=== PATIENT | female | born 1970 | race Caucasian/White ===

== ENCOUNTER 2023-08-07 10:52 | Emergency (ER) | payer OTHER, SELFPAY ==
[2023-08-07 10:59] VITALS: BP 140/79
[2023-08-07 11:21] VITALS: BP 147/66
--- NOTE | 2023-08-07 11:21 | ED.GENMED ---
History of Present Illness
<Cherri Marino PA-C - Last Filed: 08/07/23 18:18>
General
Chief Complaint: Vaginal Bleeding
Source: patient
Exam Limitations: none
Time Seen by Provider: 08/07/23 11:15
Nursing documentation reviewed up to this point in time: agreed with
Travel History
Have you had any contact with someone who has COVID-19?: No
Do you have any symptoms of coronavirus? Fever > 100 degrees, chills, cough, shortness of breath, sore throat, loss of taste or smell, muscle aches, or headache?: No
History of Present Illness
History of Present Illness:
Patient is a 52 year old female w/ hx breast cancer presenting to the emergency department for evaluation of vaginal bleeding. Patient states that bleeding started initially 4 days ago, this past Saturday and has progressively gotten heavier since.
She endorses significant amounts of bright red blood with 'golf ball sized' clots. Patient states that she is changing pad every 1-2 hours. Patient reports associated fatigue and some very mild lower abdominal discomfort. Patient denies any
fever, chills, headache, dizziness, chest pain, or shortness of breath. 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
Patient states her last menstrual period was July 16. She does have a history of heavy bleeding status post childbirth. Patient does believe she had a fibroid that was being monitored over 20 years ago. Patient is not on any control at this
time. Patient denies any history of STDs/STIs.
Patient sees [facility]. She has a follow-up appt scheduled with them Saturday.
Review of Systems
<Cherri Marino PA-C - Last Filed: 08/07/23 18:18>
Review of Systems
Allergies reviewed?: Yes
All Other Systems: ROS reviewed and negative except as documented in HPI and ROS
Phy Exam
<Cherri Marino PA-C - Last Filed: 08/07/23 18:18>
Physical Exam
Physical Exam:
Vitals: Patient's vital signs are stable. Afebrile.
General: Patient is well appearing, no acute distress. Nontoxic appearing.
Skin: Warm and dry, no rashes or lesions
Head: Normocephalic, atraumatic
Eyes: Sclera nonicteric. EOMs intact. No nystagmus.
Throat: Protecting airway. Moist mucous membranes
Neck: Normal ROM, no cervical spine tenderness, no meningismus
Cardiac: Regular rate and rhythm, no murmurs.
Pulm: Normal respiratory effort, no wheezes, rales, rhonchi heard on exam.
Abdomen: Abdomen soft. Mild suprapubic tenderness without any rebound tenderness or guarding.
Pelvic: Minimal amount of blood in vaginal vault. Cervix closed. No clots visualized. No lacerations or other abnormalities noted.
Extremities: No evidence of cyanosis or edema. Good distal pulses.
Neuro: AAOx3. CN II-XII intact. No focal neurologic deficits.
Psychiatric: Normal affect.
Course
<Cherri Marino PA-C - Last Filed: 08/07/23 18:18>
Orders/Labs/Results
Orders:
Orders
08/07/23 11:29
Test Result ONCE
08/07/23 11:30
0.9% Sodium Chloride 1000 ml [Nss] 1,000 ml IV BOLUS
08/07/23 11:31
Type+Screen Urgent
Beta Hcg Serum Qualitative Screen [HCG, Serum Qualitative Screen] Urgent
Complete Blood Count/With Diff Urgent
Comprehensive Metabolic Panel Urgent
TSH Reflex To Free T4 Urgent
08/07/23 12:01
US Pelvis Only (non-obstetric) Urgent
Comment:
Reason For Exam: heavy vaginal bleeding and clots
Abnormal Lab Results
08/07/23
11:31
Hgb 11.9 L g/dL
(12.0-16.0)
Hct 36.9 L %
(37.0-47.0)
MCH 26.7 L pg
(27.0-31.0)
MCHC 32.2 L g/dL
(33.0-37.0)
MPV 10.6 H fL
(7.4-10.4)
Creatinine 0.5 L mg/dL
(0.6-1.0)
Glucose 102 H mg/dl
(70-99)
08/07/23 11:31
08/07/23 11:31
Vital Signs
Initial and Last Documented VS:
Initial Vital Signs
Temp Pulse Resp BP Pulse Ox
98.5 F 80 18 140/79 97
08/07/23 10:59 08/07/23 10:59 08/07/23 10:59 08/07/23 10:59 08/07/23 10:59
Last Documented Vital Signs
Temp Pulse Resp BP Pulse Ox
98.5 F 64 18 106/60 98
08/07/23 10:59 08/07/23 12:30 08/07/23 12:30 08/07/23 12:00 08/07/23 12:30
Noemilt;Dylan Diaz, DO - Last Filed: 08/07/23 12:40>
Orders/Labs/Results
Orders:
Orders
08/07/23 11:29
Test Result ONCE
08/07/23 11:30
0.9% Sodium Chloride 1000 ml [Nss] 1,000 ml IV BOLUS
08/07/23 11:31
Type+Screen Urgent
Beta Hcg Serum Qualitative Screen [HCG, Serum Qualitative Screen] Urgent
Complete Blood Count/With Diff Urgent
Comprehensive Metabolic Panel Urgent
TSH Reflex To Free T4 Urgent
08/07/23 12:01
US Pelvis Only (non-obstetric) Urgent
Comment:
Reason For Exam: heavy vaginal bleeding and clots
Abnormal Lab Results
08/07/23
11:31
Hgb 11.9 L g/dL
(12.0-16.0)
Hct 36.9 L %
(37.0-47.0)
MCH 26.7 L pg
(27.0-31.0)
MCHC 32.2 L g/dL
(33.0-37.0)
MPV 10.6 H fL
(7.4-10.4)
Creatinine 0.5 L mg/dL
(0.6-1.0)
Glucose 102 H mg/dl
(70-99)
08/07/23 11:31
08/07/23 11:31
Vital Signs
Initial and Last Documented VS:
Initial Vital Signs
Temp Pulse Resp BP Pulse Ox
98.5 F 80 18 140/79 97
08/07/23 10:59 08/07/23 10:59 08/07/23 10:59 08/07/23 10:59 08/07/23 10:59
Last Documented Vital Signs
Temp Pulse Resp BP Pulse Ox
98.5 F 64 18 106/60 98
08/07/23 10:59 08/07/23 12:30 08/07/23 12:30 08/07/23 12:00 08/07/23 12:30
<Cherri Marino PA-C - Last Filed: 08/07/23 18:18>
MDM/Problems Addressed
Differential Diagnosis Includes:
Not limited to: fibroids, ovarian cyst, hormonal imbalance secondary to perimenopause, ectopic , malignancy
MDM/Problems Addressed:
52 year old female presenting with heavy vaginal bleeding for the past 4 days. Some fatigue but she does deny any dizziness, shortness of breath, lightheadedness. Patient with history of heavy menstrual bleeding since childbirth and questionable
uterine fibroids. Patient does have close [employer] DES[employer]ER [id number] scheduled for next Saturday to rule out emergent bleeding. Patient has stable vital signs. Normotensive, regular heart rate. Exam as above. Patient is very well-appearing.
She has very minimal suprapubic tenderness, although abdomen is soft throughout. Pelvic exam shows very minimal bright red blood in vault with a closed cervix. No other abnormalities noted. Will check basic labs, , ultrasound. Will
monitor closely reassess.
Labs noted. Hemoglobin essentially normal at 11.9.�No prior value to compare. Otherwise no clinically significant abnormalities. test is negative. Will check ultrasound. Patient feeling better after IV fluids. Anticipate discharge
home with [employer] DES[employer]ER follow-up.
Pelvic ultrasound shows a mildly enlarged uterus without any discrete lesions identified. Results were discussed with patient. She has remained very stable with normal vital signs. She will be discharged with [employer]ER follow-up early next week.
She may require additional imaging and biopsies. Given stable vital signs and only bleeding for 4 days with history of breast cancer�will not start patient on progesterone. Return precautions discussed with patient at length. She is comfortable
with plan.
Chronic conditions affecting care:
History of breast cancer
Acute Exacerbation and/or Progression of Chronic Illness:
N/A
<Cherri Marino PA-C - Last Filed: 08/07/23 18:18>
*Radiology
Radiology exam reviewed: radiology read reviewed
*Pulse Oximetry
Patient hypoxic: no
*EKG
Interpreted by ED Provider?: NA
*Dog Breeder Interpretation
Rate: normal
Interpretation: normal
Heart Rate: 68
Rhythm: sinus
*Critical Care Note
Total Time (30-74mins, 75-104mins- exclusive of procedures): Not Applicable
ED Attending Note
<Cherri Marino PA-C - Last Filed: 08/07/23 18:18>
-
Portions of this chart may have been created with voice recognition software.� Occasional wrong word or��sound alike� substitutions may have occurred due to the inherent limitations of voice recognition software.
<Dylan Diaz, - Last Filed: 08/07/23 12:40>
ED Attending Note
Patient seen and examined by attending physician: Yes
I performed the substantive portion of visit, reviewed & personally made and approve the management plan that is documented in note by myself or BITA.: Yes
ED Attending Note:
I agree with Prema's note.
Pt with persistent, heavy vaginal bleeding x 4 days. + clots. Pt feels drained.
VSS
HEENT: pink sclera
Heart: rrr no murmurs
Abd: mild suprapubic tenderness
Hgb 11.9
Hcg: neg
Obtain u/s.
Pt not hemodynamically unstable. Likely outpt f/u.....pt has appt on Saturday.
Discharge Plan
Departure
Patient Disposition: Home (Routine Discharge)
Date of Disposition: 08/07/23
Time of Disposition: 16:01
Patient with high blood pressure during this ER visit?: Yes
Condition: Good
Covid-19: Not Applicable
Discharge Problem:
Vaginal bleeding
Instructions: Heavy Periods (DC), BLOOD PRESSURE
Prescriptions:
No Action
levothyroxine 25 mcg Tablet
25 mcg PO DAILY
pantoprazole 20 mg Tablet,Delayed Release (Dr/Ec)
20 mg PO DAILY
Referrals:
Jeannie Clark MD [Family Provider] -
Activity Restrictions/Additional Instructions:
RETURN TO THE EMERGENCY DEPARTMENT WITH ANY HIGH FEVERS, SHORTNESS OF BREATH, DIZZINESS/LIGHTHEADEDNESS, CHEST PAIN, PERSISTENT/WORSENING IN VAGINAL BLEEDING, SEVERE ABDOMINAL PAIN, INTRACTABLE NAUSEA/VOMITING, WORSENING IN CURRENT SYMPTOMS, OR ANY
OTHER CONCERNS
-As discussed�it is important to stay well-hydrated. Please monitor your symptoms closely with any persistent bleeding/worsening in severity please return to the emergency department
-As discussed�it is important that you keep your appointment your [employer] to follow-up early next week for further evaluation/management
Interventions
Interventions:
*Risk Screen - Suicide Last Done: 08/07/23 10:59
*General Assessment Last Done: 08/07/23 10:59
*Neglect/Abuse Screening Last Done: 08/07/23 10:59
ED- Fall Risk Assessment Last Done: 08/07/23 11:24
*ED COVID-19 Vaccine History Last Done: 08/07/23 10:59
*Nursing Disposition Last Done: 08/07/23 16:17
ED-Female Genitourinary Assessment Last Done: 08/07/23 11:24
Discharge Date and Time
Discharge Date/Time: 08/07/23 16:18
Print Language: OCCITAN
[2023-08-07] MEDS: NSS 1000 IV (11:34)
[2023-08-07 11:48] LABS: % Basophils 0.4 % (0-2); % Eosinophils 1.5 % (0-6); % Immature Granulocytes 0.1 % (0-0.5); % Lymphocytes 25.9 % (20.5-51.1); % Neutrophils 64.1 % (42.2-75.2); Absolute Eosinophils 0.1 10^3/uL (0-0.7); Absolute Monocytes 0.6 10^3/uL (0.1-0.6); Hematocrit 36.9 % (37.0-47.0); Hemoglobin 11.9 g/dL (12.0-16.0); Mean Corp Hgb Conc. 32.2 g/dL (33.0-37.0); Mean Corpuscular Hgb 26.7 pg (27.0-31.0); Mean Corpuscular Volume 82.7 fL (81.0-99.0); Mean Platelet Volume 10.6 fL (7.4-10.4); Nucleated Red Blood Cells % 0 %; Platelet Count 215 10^3/uL (130-400); Red Blood Cell Count 4.46 10^6/uL (4.20-5.40); Red Cell Dist. Width 13.2 % (11.5-14.5); White Blood Cell Count 7.8 10^3/uL (4.8-10.8)
[2023-08-07 12:00] VITALS: BP 106/60
[2023-08-07 12:01] LABS: HCG, Serum Qualitative Screen Negative
[2023-08-07 12:04] LABS: ALT (SGPT) 13 U/L (0-35); AST (SGOT) 19 U/L (14-36); Alkaline Phosphatase 70 U/L (38-126); Blood Urea Nitrogen 7 mg/dl (7-17); Calcium 9.3 mg/dl (8.4-10.2); Carbon Dioxide 28 mmol/L (22-30); Chloride 104 mmol/L (98-107); Glucose 102 mg/dl (70-99); Potassium 3.8 mmol/L (3.5-5.1); Sodium 139 mmol/L (135-145); Total Bilirubin 0.3 mg/dl (0.2-1.3); Total Protein 6.6 g/dl (6.3-8.2); eGFR > 60.00
== END 2023-08-07 16:18 | disposition home or self-care (01) ==
LOC: EMR 10:52
PROVIDERS: Physician Assistant; EMERGENCY PHYSICIAN Emergency Medicine; FAMILY PHYSICIAN Internal Medicine
DX: N93.9 Abnormal uterine and vaginal bleeding, unspecified (principal); R53.83 Other fatigue; R10.30 Lower abdominal pain, unspecified; N85.2 Hypertrophy of uterus; E78.5 Hyperlipidemia, unspecified; R03.0 Elevated blood-pressure reading, without diagnosis of hypertension; Z85.3 Personal history of malignant neoplasm of breast; Z88.1 Allergy status to other antibiotic agents
CPT/HCPCS: 99284; 96360; 76856; 80053; 84443; 84703; 85025; 86850; 86900; 86901